=== PATIENT | male | born 1945 | race Caucasian/White ===

== ENCOUNTER → 2020-05-15 06:23 | Outpatient (CLI) | payer MEDICARE, SELFPAY ==
[2020-05-06 15:46] VITALS: BMI 27.0
--- NOTE | 2020-05-15 08:55 | STRESSREP ---
Stress Test Report Exercise myocardial perfusion stress test. 74-year-old male with a history of shortness of breath. Stress protocol: Resting KG demonstrates normal sinus rhythm with a rate of 63 bpm normal intervals are noted resting blood pressure is 132/92 mmHg. The patient exercised according to regular Power protocol for total duration of 7 minutes and 12 seconds the maximum heart rate attained was 123 bpm which was 84% of maximum predicted heart rate the maximum workload was 8.8 metabolic equivalents. Patient completed stage III of the Power protocol by 1 minute and 12 seconds. The resting blood pressure is 132/92 with a final blood pressure 132/84. The peak blood pressure was 168/70 which was a normal response to exercise. At rest there were no ST or T wave changes noted to suggest ischemia at peak exercise upsloping ST changes were noted with no meet the criteria for ischemia. The test was terminated due to the target heart rate being achieved as well as dyspnea. Myocardial perfusion protocol. 11.3 mCi of technetium 99m sestamibi was injected at rest. Patient exercised for a total duration of 7 minutes and 12 seconds at peak exercise 34.2 mCi of technetium 99m sestamibi was injected stress images were obtained stress and rest images were reconstructed and compared in the short axis vertical long horizontal long axis. Gated images were also obtained Perfusion SPECT analysis: Review of the stress images demonstrate normal uptake of tracer noted in all areas of the myocardium the resting images similarly demonstrate normal uptake of tracer noted in all areas of the myocardium. No areas of reversibility are noted suggest ischemia no previous infarct is noted. Gated SPECT analysis: The gated ejection fraction is 72%. Conclusion: Normal exercise myocardial perfusion stress test at a moderate workload. Preserved ejection fraction.
== END ==
PROVIDERS: PCP Family Medicine; Referring Provider Internal Medicine Cardiovascular Disease; Visit Provider Internal Medicine Cardiovascular Disease
DX: I42.0 Dilated cardiomyopathy (principal); I25.10 Atherosclerotic heart disease of native coronary artery without angina pectoris
CPT/HCPCS: 78452; 93017; A9500; A4216

== ENCOUNTER → 2021-01-26 11:14 | Outpatient (CLI) | payer MEDICARE, SELFPAY ==
[2021-01-26 07:25] VITALS: BMI 25.1
[2021-01-26 12:18] LABS: Absolute Lymphocyte Count 1.82 X10^3/uL (0.83-4.51); Basophil# 0.05 X10^3/uL; Basophil% 0.6 % (0-1); Eosinophil# 0.16 X10^3/uL; Eosinophils% 1.9 % (0-5); Hematocrit 43.1 % (40-54); Hemoglobin 13.9 g/dL (13.0-16.5); Lymphocyte # 1.82 X10^3/ul (0.83-4.51); Lymphocyte % 21.1 % (19-41); Mean Corp Hgb Conc 32.3 g/dL (32-36); Mean Corpuscular Hgb 29.6 pg (27.0-32.0); Mean Corpuscular Volume 91.9 fL (80-94); Monocyte# 0.61 X10^3/uL; Monocyte% 7.1 % (0-10); NRBC Flagged by Analyzer 0 % (0-5); Neutrophil # 5.96 X10^3/uL (2.7-7.7); Neutrophil % 68.8 % (47-70); Platelet Count 217 K/mm3 (150-450); RBC Distribution Width CV 13.5 % (11.6-14.6); RBC Distribution Width SD 45.6 fl (35.1-43.9); Red Blood Count 4.69 M/mm3 (4.6-6.2); White Blood Count 8.6 K/mm3 (4.4-11.0)
[2021-01-26 13:00] LABS: Thyroid Stim Hormone (TSH) 1.19 uIU/mL (0.358-3.74)
== END ==
PROVIDERS: PCP Family Medicine; Referring Provider Internal Medicine Cardiovascular Disease; Visit Provider Internal Medicine Cardiovascular Disease
DX: I77.810 Thoracic aortic ectasia (principal)
CPT/HCPCS: 36415; 84443; 85025

== ENCOUNTER → 2021-02-04 13:00 | Outpatient (CLI) | payer MEDICARE, SELFPAY ==
[2021-01-26 07:25] VITALS: BMI 25.1
--- NOTE | 2021-02-04 13:01 | ECHOCS_ITS ---
Version 2 Reason For Study: CMP Procedure This was a 2D Doppler, Color Flow transthoracic echocardiogram. The study was technically difficult. Contrast injection was performed. Exam performed in department. Left Ventricle Normal LV size. Left ventricular systolic function is normal. The estimated ejection fraction is 65 %. Stage 1 diastolic dysfunction. No regional wall motion abnormalities noted. Right Ventricle Normal RV size. Normal systolic function. Atria Normal left atrium. Normal right atrium. Mitral Valve Normal mitral valve. Tricuspid Valve Normal tricuspid valve. Mild tricuspid valve insufficiency. Pulmonary artery systolic pressure is 34 mmHg. Aortic Valve Trisinus/trileaflet aortic valve. Pulmonic Valve Normal pulmonic valve. Great Vessels Mildly dilated aortic root. The pulmonary artery is normal size. Normal inferior vena cava. Pericardium/Pleural No pericardial effusion. Medication 22 gauge I.V. with prn adaptor inserted into right arm. Diluted definity 4ml given slow IV push to enhance endocardial definition. MMode/2D Measurements & Calculations LVIDd: 5.1 cm IVSd: 1.2 cm Ao root diam: 4.2 cm LVIDs: 3.4 cm LVPWd: 1.0 cm RVDd: 3.8 cm FS: 33.4 % LAV(MOD-sp4): 42.6 ml LVAd ap4: 42.5 cm2 LVAd ap2: 31.9 cm2 LVLd ap4: 9.3 cm LVLd ap2: 8.1 cm EDV(MOD-sp4): 168.4 ml EDV(MOD-sp2): 107.1 ml EDV(sp4-el): 164.2 ml EDV(sp2-el): 106.3 ml LVAs ap4: 24.3 cm2 LVAs ap2: 18.3 cm2 LVLs ap4: 7.0 cm LVLs ap2: 6.3 cm ESV(MOD-sp4): 69.9 ml ESV(MOD-sp2): 46.3 ml ESV(sp4-el): 71.3 ml ESV(sp2-el): 44.6 ml EF(MOD-sp4): 58.5 % EF(MOD-sp2): 56.7 % EF(sp4-el): 56.6 % SV(MOD-sp4): 98.5 ml SV(MOD-sp2): 60.8 ml SV(sp4-el): 92.9 ml LA A4 area: 17.5 cm2 LA dimension(2D): 3.3 cm RA A4 area: 15.4 cm2 Time Measurements MV dec time: 0.35 sec Doppler Measurements & Calculations MV E max robin: 39.9 cm/sec Lat Peak E' Robin: 3.5 cm/sec Med Peak E' Robin: 4.0 cm/sec MV A max robin: 63.5 cm/sec E/E' lat: 11.3 E/E' med: 9.9 MV E/A: 0.63 Ao V2 max: 129.9 cm/sec LV V1 max: 129.9 cm/sec PA V2 max: 126.0 cm/sec Ao max P.7 mmHg LV V1 max P.7 mmHg PI end-d robin: 104.2 cm/sec TR max robin: 264.4 cm/sec TR max P.0 mmHg ECHO/Echo Complete W/ Contrast Interpretation Summary Normal LV size. Left ventricular systolic function is normal. The estimated ejection fraction is 65 %. Stage 1 diastolic dysfunction. Mildly dilated aortic root. Pulmonary artery systolic pressure is 34 mmHg. Contrast injection was performed. Ordering Physician: Pablito Fulton Referring Physician: JACQUES SWANSON Performed By: Romy Frye, COREY, RVT
== END ==
PROVIDERS: PCP Family Medicine; Referring Provider Internal Medicine Cardiovascular Disease; Visit Provider Internal Medicine Cardiovascular Disease
DX: I42.8 Other cardiomyopathies (principal)
CPT/HCPCS: 93306; Q9957; A4216; C8929

== ENCOUNTER 2024-07-17 15:00 | Outpatient (RCR) | payer MEDICARE, SELFPAY ==
--- NOTE | 2024-06-11 14:07 | HP.PTEVAL_ITS ---
Patient's Visit Information Visit Information Visit Information: HANNAH STONE is a 79 year old M referred to Physical Therapy by Dr. Jasmin Enamorado MD with a diagnosis of PD and gait instability. 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 He is not sure of the PD meds are helping. He is having trouble getting up out of a chair. It will take him a few attempts and has to use his arms. He has trouble with stiffness when he first gets up at night. He has no trouble walking short distances but long distances he gets tired. He has not had any falls in the last 6 months. He has stairs at home and goes up recip with a handrail. He has freezing episodes and those happen when he tries to back up. He still drives. He has moderate trouble getting out of a car. He likes to yard work for fun. He started with R hip pain about a week ago and can't recall how he hurt it. Pain R hip pain: Pain Intensity (Out of 10): 0 Pain Intensity Range: 3 Comment: with walking Objective Objective: Gait: walks with shorter stride and flexed trunk and decrease DF Retro Walking: walks with short strides and some retro LOB LE MMT: B hip flex, B knee ext, B knee flex 4+/5 B Pt is very rigid in his trunk and very tight with LTR and SKC Supine to sit needed min A and verbal cues to help get to sitting Retro LOB and hard at times to catch his balance Sit to stand: needs UE assist and takes multiple attempts to get weight shifted FW to get out of the chair. Steps: up steps recip (fast pace and pt missed a step and therapist helped with gait belt as did pt with the railing to correct his LOB) and down recip with 1 hand rail kind of going sideways down the steps Standing opp arm and leg: able to get X 6 in a row on each side but needed min A at times to correct LOB when in staggered stance FGA: 13 Balance/Special Test Scores Functional Gait Assessment Score: 13 % Disability: 56.6700 Lower Extremity Functional Score: 42 Goals Goal 1:: I HEP Goal Time Frame: 6-8 Weeks Goal 2:: Be able to walk BW starting and stopping without retro LOB Goal Time Frame: 6-8 Weeks Goal 3:: Increase balance (FGA was 13 at eval). Goal Time Frame: 6-8 Weeks Goal 4:: Be able to go up and down the steps recip with 1 hand rail slow and controlled without LOB Goal Time Frame: 6-8 Weeks Goal 5:: Perform X 10 sit to stands on first attempt with 1 UE support Goal Time Frame: 6-8 Weeks Rehabilitation Potential Rehabilitation Potential: Good Anticipated Interventions Patient/Client Instruction: Educate patient on: Condition and Plan of Care For the Purpose of:: To decrease pain, To increase ROM, To improve nutrient delivery to tissue, To improve muscle performance and motor function, To improve ability to perform ADL's, To increase tolerance to activity/condition/position, To improve performance and independence with ADL's, To decrease level of supervision to perform tasks, To improve ability of physical actions for home/community/work/leisure, To improve gait and locomotor functions, To improve health of tissue, To decrease soft tissue restriction, To increase flexibility/ROM, To improve endurance, To improve balance and To improve safety with gait Therapeutic Exercise to Include: Strength training, Endurance training, Balance training, Body mechanics, Postural training, Flexibilty training, Gait and locomotor training, Neuromotor development, Active ROM, Dynamic Lumbar Stabilization and Scapular Strength/Stabilization For the Purpose of:: To decrease pain, To increase ROM, To improve nutrient delivery to tissue, To increase oxygenation perfusion, To improve muscle performance and motor function, To improve ability to perform ADL's, To increase tolerance to activity/condition/position, To improve performance and i ndependence with ADL's, To decrease level of supervision to perform tasks, To improve ability of physical actions for home/community/work/leisure, To improve gait and locomotor functions, To improve health of tissue, To decrease soft tissue restriction, To increase flexibility/ROM, To improve endurance, To improve balance and To improve safety with gait Functional Training to Include: Gait training For the Purpose of:: To improve gait and locomotor functions and To improve safety with gait Text: Thank you for the opportunity to evaluate your patient. For Medicare and Medicare HMO plans, please review the plan of care and approve it. It will need to be FAXED BACK to us at [phone] for Medicare purposes. For Medicare only, by signing this I certify the plan of care. Please let me know if there are questions or concerns regarding this plan of care. Physician Signature: Date:
--- NOTE | 2024-07-17 15:30 | HP.PTDCSUM ---
Discharge Summary D/C summary: It has been my pleasure to treat HANNAH STONE referred by Dr. Jasmin Enamorado MD, with the diagnosis of PD and gait instability for a total of 7 visit(s). Discharge Date: 07/17/24 Please see the following information for a summary of their discharge status. Subjective Subjective: Pt feels that his legs are a little stronger. He has no pain but just the weakness getting up out of a chair. He still freezes getting out of a chair. It is really bad when get up in the morning. Pain R hip pain: Pain Intensity (Out of 10): 0 Overall Improvement % Improvement: 15 Objective Objective/Function: FGA 19 Sit to stand X 10 on first attempt Goals Goal 1:: I HEP Goal Progress: Goal Met Goal 2:: Be able to walk BW starting and stopping without retro LOB Goal Progress: Goal Met Goal 3:: Increase balance (FGA was 13 at eval). Goal Progress: Goal Met Goal 4:: Be able to go up and down the steps recip with 1 hand rail slow and controlled without LOB Goal Progress: Goal Met Goal 5:: Perform X 10 sit to stands on first attempt with 1 UE support Goal Progress: Goal Met Plan Plan: DC PT D/C Information Discharge Comments: DC PT to HEP d/c sentence: If there are questions or concerns regarding this patient's physical therapy, please feel free to call me at [phone]. Thank you for the referral of this patient. Sincerely, Millie Streeter, MPT Balance/Gait/Functional tests Balance/Special Test Scores Functional Gait Assessment Score: 19 % Disability: 36.6700 Lower Extremity Functional Score: 58 Improvement % Improvement: 15
== END 2024-07-17 19:00 | disposition home or self-care (01) ==
LOC: PT 15:00
PROVIDERS: PCP Family Medicine; Referring Provider Psychiatry & Neurology Neurology; Visit Provider Psychiatry & Neurology Neurology
DX: R26.81 Unsteadiness on feet (principal); G20.C Parkinsonism, unspecified
CPT/HCPCS: 97110; 97161; 97530